=== PATIENT | female | born 2000 | race African-American/Black ===

== ENCOUNTER 2020-02-02 22:59 | Emergency (ER) | payer OTHER ==
--- NOTE | 2020-02-03 00:27 | ED ---
Respiratory - HPI Summary HPI Summary: This pt is a 19 Y/O F presenting to [facility] with a CC of a persistent could and a cough that has been present for 1 week. She states that her symptoms worsened today when she woke up. She states that her chest became tight and states that the pain is rated a 6/10 in severity. She developed nasal congestion. She also reports increased SOB and chills. She denies any fevers, headaches, and N/V. She states that she has a PMHx of asthma but states she does not have an inhaler since she hasnt had symptoms in years. She denies any recent travel out of [place]. She has no aggravating or alleviating factors. - History of Current Complaint Chief Complaint: Hugh Stated Complaint: CHEST PAIN PER PT Time Seen by Provider: 02/03/20 00:20 Hx Obtained From: Patient Onset/Duration: Lasting Weeks - 1, Worse Since - this morning Timing: Constant Initial Severity: Mild Current Severity: Moderate Pain Intensity: 6 Character: Dyspnea at Rest Sputum Amount: None Aggravating Factor(s): Nothing Alleviating Factor(s): Nothing Associated Signs and Symptoms: Negative - fevers, headaches, and N/V., SOB, Chest Pain, Chills, Nasal Congestion - Allergy/Home Medications Allergies/Adverse Reactions: Allergies Allergy/AdvReac Type Severity Reaction Status Date / Time No Known Allergies Allergy Verified 02/02/20 23:08 Home Medications: Home Medications Albuterol HFA INHALER* [Ventolin HFA Inhaler*] 2 puff INH Q4H PRN #1 mdi [Rx] predniSONE 20 mg TAB [Deltasone 20 MG TAB*] 40 mg PO DAILY 5 Days #10 tab [Rx] PMH/Surg Hx/FS Hx/Imm Hx Previously Healthy: Yes Endocrine/Hematology History: Denies: Hx Diabetes Cardiovascular History: Denies: Hx Hypertension Respiratory History: Reports: Hx Asthma - Cancer History Hx Chemotherapy: No Hx Radiation Therapy: No - Surgical History Surgical History: None - Immunization History Immunizations Up to Date: Yes Infectious Disease History: No Infectious Disease History: Denies: Traveled Outside the in Last 30 Days - Social History Occupation: [employer] Review of Systems Positive: Chills. Negative: Fever ENT: Other - nasal congestion Positive: Chest Pain Positive: Shortness Of Breath, Cough Negative: Vomiting, Nausea Negative: Headache All Other Systems Reviewed And Are Negative: Yes Physical Exam Triage Information Reviewed: Yes Vital Signs On Initial Exam: Initial Vitals Temp Pulse Resp BP Pulse Ox 98 F 94 16 141/82 99 02/02/20 23:06 02/02/20 23:06 02/02/20 23:06 02/02/20 23:06 02/02/20 23:06 Vital Signs Reviewed: Yes Procedures - Sedation Patient Received Moderate/Deep Sedation with Procedure: No Diagnostics - Vital Signs Vital Signs Temp Pulse Resp BP Pulse Ox 02/02/20 23:06 98 F 94 16 141/82 99 - Laboratory Lab Statement: Any lab studies that have been ordered have been reviewed, and results considered in the medical decision making process. - EKG 2303 Cardiac Rate: NL - 80 BPM EKG Rhythm: Sinus Rhythm ST Segment: Normal Ectopy: None Summary of EKG Findings: An EKG at 2303 reveals NSR at 80 BPM, nml axis, nml intervals. No STEMI. No acute changes. Interpreted by Dr. Yu 02/02/2020 2305. Disposition - Course Course Of Treatment: This pt is a 19 Y/O F presenting to [facility] with a CC of a persistent could and a cough that has been present for 1 week. She states that her symptoms worsened today when she woke up. She states that her chest became tight and she developed nasal congestion. She also reports increased SOB and chills. Her PE has no acute abnormalities. An EKG at 2303 reveals NSR at 80 BPM, nml axis, nml intervals. No STEMI. No acute changes. She will be discharged home with a Dx of acute asthma exacerbation. She will be given prednisone and an albuterol inhaler. - Diagnoses Provider Diagnoses: Acute asthma exacerbation Discharge ED - Sign-Out/Discharge Documenting (check all that apply): Patient Departure - discharge - Discharge Plan Condition: Good Disposition: HOME Prescriptions: Albuterol HFA INHALER* [Ventolin HFA Inhaler*] 2 puff INH Q4H PRN #1 mdi PRN Reason: Wheezing predniSONE 20 mg TAB [Deltasone 20 MG TAB*] 40 mg PO DAILY 5 Days #10 tab Patient Education Materials: Asthma (ED) Referrals: [facility] [Outside] - 3 Days (if not improving) - Billing Disposition and Condition Condition: GOOD Disposition: Home - Attestation Statements Document Initiated by Catrachita: Yes Documenting Scribe: Jeferson Garcia Provider For Whom Catrachita is Documenting (Include Credential): Singh Yu MD Scribe Attestation: Jeferson Cohn, scribed for Singh Yu MD on 02/03/20 at 0651. Scribe Documentation Reviewed: Yes Provider Attestation: The documentation as recorded by the Jeferson sorto accurately reflects the service I personally performed and the decisions made by me, Singh Yu MD Status of Scribe Document: Viewed
[2020-02-03 00:49] VITALS: BP 0/0
[2020-02-03] MEDS ORDERED: Albuterol HFA INHALER* 8 gm MDI INH SCH (01:00)
== END 2020-02-03 00:48 | disposition home or self-care (01) ==
LOC: ED 22:59
DX: J45.901 Unspecified asthma with (acute) exacerbation (principal); R07.9 Chest pain, unspecified; R06.02 Shortness of breath; Z79.52 Long term (current) use of systemic steroids; Z79.899 Other long term (current) drug therapy
CPT/HCPCS: 93005; 99282; A9270-GY; J7512